=== PATIENT | male | born 1970 | race Caucasian/White ===

== ENCOUNTER → 2020-05-09 | Outpatient (CLI) | payer OTHER | END | disposition home or self-care (01) | LOC: LABWHC1 11:20 | PROVIDERS: ATTEND Internal Medicine | DX: Z20.828 Contact with and (suspected) exposure to other viral communicable diseases (principal) | CPT/HCPCS: U0003; C9803 ==

== ENCOUNTER → 2020-08-23 | Outpatient (CLI) | payer OTHER | END | disposition home or self-care (01) | LOC: LABWHC1 16:49 | PROVIDERS: ATTEND Nurse Practitioner | DX: R05 Cough (principal); M79.10 Myalgia, unspecified site | CPT/HCPCS: U0003; C9803 ==

== ENCOUNTER → 2023-06-29 | Outpatient (CLI) | payer OTHER ==
--- NOTE | 2023-06-29 14:18 | CT ---
EXAMINATION TYPE: CT brain wo con DATE OF EXAM: 06/29/2023 COMPARISON: None HISTORY: High blood pressure, headaches CT DLP: 465.10 mGycm Automated exposure control for dose reduction was used. FINDINGS: Ventricles are consistent with patient's age. No midline shift or mass effect. No acute hemorrhage. Orbits are symmetric. Craniocervical junction is maintained. Sella turcica is normal. A small mucous retention cysts or polyps in the maxillary sinuses. Frontal sinuses hypoplastic. IMPRESSION: NO ACUTE HEMORRHAGE OR MASS EFFECT.
--- NOTE | 2023-06-29 14:22 | CT ---
EXAMINATION TYPE: CT angio head neck CT DLP: 1184.90 mGycm, Automated exposure control for dose reduction was used. DATE OF EXAM: 06/29/2023 2:10 PM COMPARISON: CT brain same day.. CLINICAL INDICATION:Male, 53 years old with history of R51.9 HEADACHE, UNSPECIFIED, headache, high bl ood pressure TECHNIQUE: Axially acquired helical CT angiogram of the head and neck was obtained with contrast. Axi al images are supplemented with 3D reconstructions which [facility] NASCET criteria used. Contrast used:100mL mL of Isovue 370 with IV Contrast, Oral contrast used: None. FINDINGS: CTA HEAD: No evidence of acute intracranial hemorrhage, mass effect, or midline shift. The ventricles, sulci, a nd cisterns are unremarkable. Mild paranasal sinus disease with retention cysts bilaterally in the ma xillary sinuses. The visualized portions of the internal carotid arteries, middle cerebral arteries, anterior cerebral arteries, and posterior cerebral arteries are patent. Diminutive right A1 segment dominant left. The basilar and vertebral arteries are patent. CTA NECK: Right Carotid System: The common carotid artery and external carotid artery are patent. The carotid bifurcation demonstrate s no evidence of hemodynamically significant stenosis. The remaining portions of the internal carotid artery demonstrate normal size without significant narrowing. Left Carotid System: The common carotid artery and external carotid artery are patent. The carotid bifurcation demonstrate s no evidence of hemodynamically significant stenosis. The remaining portions of the internal carotid artery demonstrate normal size without significant narrowing. Vertebral arteries are patent without evidence hemodynamically significant stenosis. There is a three-vessel aortic arch. The origins of the great vessels are patent. No evidence of hemo dynamically significant stenosis. IMPRESSION: 1. No evidence of dissection of the cervical internal carotid arteries or vertebral arteries or any e vidence of significant stenosis at the carotid bifurcations. 2. No evidence of intracranial high-grade stenosis or intracranial aneurysm.
== END | disposition home or self-care (01) ==
LOC: RADCTMAIN 13:11
PROVIDERS: ATTEND Family Medicine
DX: R51.9 Headache, unspecified (principal); R03.0 Elevated blood-pressure reading, without diagnosis of hypertension
CPT/HCPCS: 70496; 70450; 70498; Q9967